=== PATIENT | female | born 1955 | race Hispanic/Latino ===

== ENCOUNTER 2016-11-30 11:38 | Outpatient (CLI) | payer MEDICAID ==
--- NOTE | 2016-11-30 16:29 | Mammography Report ---
BILATERAL DIGITAL SCREENING MAMMOGRAM with CAD: 11/30/16 11:38:00 CLINICAL: Routine screening. COMPARISON:12/01/15 FINDINGS: The breasts are heterogeneously dense, which may obscure small masses. No mass, architectural distortion or suspicious calcifications. IMPRESSION: No mammographic evidence of malignancy. BI-RADS CATEGORY: 1 - - Negative RECOMMENDATION: Routine mammographic screening in one year. COMMENT: Patient follow-up letters are generated by our [employer] application.
== END 2016-11-30 11:39 | disposition home or self-care (01) ==
LOC: SPVWC 11:38
PROVIDERS: ATTEND Internal Medicine
DX: Z12.31 Encounter for screening mammogram for malignant neoplasm of breast (principal)
CPT/HCPCS: 77067; G0202

== ENCOUNTER 2017-12-03 12:33 | Outpatient (CLI) | payer MEDICAID ==
--- NOTE | 2017-12-03 14:09 | Mammography Report ---
BILATERAL MAMMOGRAM: FINDINGS: The breast tissue is heterogeneously dense, which could obscure detection of small masses (approximately 50%-75% glandular). No mass, distortion, suspicious calcification, or skin change is seen. No significant change compared to exams dating back to December 2015. CAD was utilized. IMPRESSION: Negative mammogram. There is no mammographic evidence of malignancy. RECOMMENDATION: Follow-up per ACS guidelines. BI-RADS CATEGORY: 1 = Negative ACR BI-RADS MAMMOGRAPHIC CODES: 0 = Needs additional imaging evaluation; 1 = Negative; 2 = Benign; 3 = Probably benign; 4 = Suspicious; 5 = Malignant; 6 = Known biopsy-proven malignancy COMMENT: 1. Dense breast tissue, i.e., adenosis, fibrocystic changes, etc., may obscure an underlying neoplasm. 2. Approximately 10% of cancers are not detected with mammography. 3. A negative mammography report should not delay biopsy if a clinically suspicious mass is present. COMMENT: Patient follow-up letters are generated in [employer].
== END 2017-12-03 12:34 | disposition home or self-care (01) ==
LOC: SPVWC 12:33
PROVIDERS: ATTEND Internal Medicine
DX: Z12.31 Encounter for screening mammogram for malignant neoplasm of breast (principal)
CPT/HCPCS: 77067

== ENCOUNTER 2019-01-23 07:35 | Outpatient (CLI) | payer MEDICAID ==
--- NOTE | 2019-01-26 12:23 | Mammography Report ---
DIGITAL SCREENING MAMMOGRAM WITH CAD, 01/23/2019 INDICATION: Routine screening mammography. TECHNIQUE: Digital bilateral 2D mammography was obtained in the craniocaudal and mediolateral obliq ue projections. This examination was interpreted with the benefit of Computer-Aided Detection analysi s. COMPARISON: 12/03/2017 FINDINGS: Breast Density: The breasts are heterogeneously dense, which may obscure small masses. There is no evidence of dominant mass, suspicious calcifications or architectural distortion in eithe r breast. IMPRESSION: No mammographic evidence of malignancy. Follow up recommendation: Routine yearly BI-RADS Category 1: Negative. A "normal" or negative report should not discourage follow up or biopsy of a clinically significant f inding. A written summary of these findings will be mailed to the patient. The patient will be entered into a mammography reporting system which will generate a reminder letter for the patient's next appointmen t at the appropriate interval. The [employer] recommends yearly mammograms starting at age 40 and continuing as l perez as a woman is in good health. Breast MRI is recommended for women with an approximate 20-25% or greater lifetime risk of breast cancer, including women with a strong family history of breast or ova yamilet cancer or who have been treated for Hodgkin's disease. Signer Name: Herminio Howard MD Signed: 01/26/2019 12:19 PM Workstation Name: [id number]
--- NOTE | 2019-01-26 14:54 | Mammography Report ---
BONE DEXA CLINICAL: Postmenopausal. COMPARISON: 08/01/2015 and 07/10/2013 TECHNIQUE: 2 site bone DEXA performed on an Hologic scanner. FINDINGS: The average BMD of the lumbar spine L1-L4 is 1.092g/cm squared with a T score of +0.1 and a Z score o f +1.9. This compares to 1.096g/cm squared on the last exam and represents a -0.3 % change from the l ast study [and a -5.0% change from baseline]. The average BMD of the left hip is 0.757 g/cm squared with a T score of -1.5and a Z score of -0.3. Th is compares to 0.792 g/cm squared on the last exam and represents a -4.4 % change from the last study and a +4.6% change from baseline. IMPRESSION: 1. WHO classification: Normal with average fracture risk based on spine measurements. 2. WHO classification Osteopenia with increased fracture risk based on left hip measurements. 3. Modest decline in spine BMD compared to the last exam but a greater decline in left hip BMD compar ed to the last exam. RECOMMENDATION: Clinical correlation and routine screening. Definitions: BMD equal bone mineral density T score = BMD related to peak bone mass of young adult ([place] expressed an standard deviation) Z score = age-matched BMD expressed in SD World health organization (WHO) diagnostic criteria Normal T score greater than equal to 1 standard deviation Osteopenia T score between -1 and -2.4 standard deviation Osteoporosis T score -2.5 standard deviation or below. Note: BMD is not the only risk factor for fracture; also consider factors such as the patient's age, risk of falling, previous osteoporotic fracture, family history of osteoporotic fractures, current sm oker and low body weight. Z scores are not calculated if greater than 80 years of age. Signer Name: Herminio Howard MD Signed: 01/26/2019 2:50 PM Workstation Name: [id number]
== END 2019-01-23 07:36 | disposition home or self-care (01) ==
LOC: SPVWC 07:35
PROVIDERS: ATTEND Internal Medicine
DX: Z12.31 Encounter for screening mammogram for malignant neoplasm of breast (principal); Z78.0 Asymptomatic menopausal state
CPT/HCPCS: 77067; 77080

== ENCOUNTER 2020-01-26 08:00 | Outpatient (CLI) | payer MEDICARE ==
--- NOTE | 2020-02-02 10:16 | Mammography Report ---
DIGITAL SCREENING MAMMOGRAM WITH CAD, 01/28/2020 INDICATION: Routine screening mammography. TECHNIQUE: Digital bilateral 2D mammography was obtained in the craniocaudal and mediolateral obliq ue projections. This examination was interpreted with the benefit of Computer-Aided Detection analysi s. COMPARISON: 01/23/2019, 12/03/2017 FINDINGS: Breast Density: There are scattered areas of fibroglandular density. There is no evidence of dominant mass, suspicious calcifications or architectural distortion in eithe r breast. There have been no significant interval changes. IMPRESSION: No mammographic evidence of malignancy or significant interval changes. Follow up recommendation: Routine yearly BI-RADS Category 1: Negative. A "normal" or negative report should not discourage follow up or biopsy of a clinically significant f inding. A written summary of these findings will be mailed to the patient. The patient will be entered into a mammography reporting system which will generate a reminder letter for the patient's next appointmen t at the appropriate interval. The [employer] recommends yearly mammograms starting at age 40 and continuing as l perez as a woman is in good health. Breast MRI is recommended for women with an approximate 20-25% or greater lifetime risk of breast cancer, including women with a strong family history of breast or ova yamilet cancer or who have been treated for Hodgkin's disease. Signer Name: Mauricio Edward MD Signed: 02/02/2020 10:12 AM Workstation Name: [id number]
== END 2020-01-26 08:01 | disposition home or self-care (01) ==
LOC: SPVWC 08:00
PROVIDERS: ATTEND Internal Medicine
DX: Z12.31 Encounter for screening mammogram for malignant neoplasm of breast (principal)
CPT/HCPCS: 77067

== ENCOUNTER 2021-12-13 08:05 | Outpatient (CLI) | payer MEDICARE ==
--- NOTE | 2021-12-13 10:24 | Mammography Report ---
DIGITAL SCREENING MAMMOGRAM WITH CAD, 12/13/2021 CLINICAL INFORMATION / INDICATION: Routine screening mammography. TECHNIQUE: Digital bilateral 2D mammography was obtained in the craniocaudal and mediolateral oblique projections. This examination was interpreted with the benefit of Computer-Aided Detection analysis. COMPARISON: 11/30/2016 through 01/27/2020. FINDINGS: Breast Density: There are scattered areas of fibroglandular density. No dominant mass, suspicious calcifications, or architectural distortion in the left breast. There is a new 11 mm spiculated mass in the right upper outer quadrant in the posterior depth at appr oximately the 10:00 to 11:00 position 9 to 10 cm from the nipple. IMPRESSION: Spiculated mass in the right upper outer quadrant. Ultrasound is recommended for initial evaluation. Spot compression views could be performed if necessary. Follow up recommendation: Ultrasound BI-RADS Category 0: INCOMPLETE. Needs additional imaging evaluation and/or prior mammograms for cara rison. A "normal" or negative report should not discourage follow up or biopsy of a clinically significant f inding. A written summary of these findings will be mailed to the patient. The patient will be entered into a mammography reporting system which will generate a reminder letter for the patient's next appointmen t at the appropriate interval. The [employer] recommends yearly mammograms starting at age 40 and continuing as l perez as a woman is in good health. Breast MRI is recommended for women with an approximate 20-25% or greater lifetime risk of breast cancer, including women with a strong family history of breast or ova yamilet cancer or who have been treated for Hodgkin's disease. Signer Name: Jaime Michaud MD Signed: 12/13/2021 10:20 AM Workstation Name: [id number]
== END 2021-12-13 08:06 | disposition home or self-care (01) ==
LOC: SPVWC 08:05
PROVIDERS: ATTEND Internal Medicine
DX: Z12.31 Encounter for screening mammogram for malignant neoplasm of breast (principal); N63.11 Unspecified lump in the right breast, upper outer quadrant
CPT/HCPCS: 77067

== ENCOUNTER 2021-12-21 08:38 | Outpatient (CLI) | payer MEDICARE ==
--- NOTE | 2021-12-21 14:33 | Ultrasound Report ---
RIGHT DIGITAL DIAGNOSTIC MAMMOGRAM CONVENTIONAL, 12/21/2021 RIGHT LIMITED BREAST ULTRASOUND CLINICAL INFORMATION / INDICATION: Patient presents as a callback from screening mammogram for furthe r evaluation of a new spiculated mass in the right breast. ABNORMAL MAMMOGRAM TECHNIQUE: Digital right mammographic imaging was performed. Spot compression views were obtained. Li mited ultrasound was performed. COMPARISON: Prior mammogram 12/13/2021 FINDINGS: Breast Density: There are scattered areas of fibroglandular density. MAMMOGRAPHIC FINDINGS: Spot compression views reveal a persistent irregular spiculated mass in the po sterior upper outer quadrant of the right breast, measuring up to 1.2 cm. Targeted ultrasound was per formed for further evaluation. ULTRASOUND FINDINGS: Targeted ultrasound evaluation was performed of the area of interest. Targeted ultrasound was performed of the upper outer quadrant of the right breast. There is a focus of probab le fibrocystic change in the 11:00 position located 7 cm from nipple measuring up to 4 mm. Additional ly, there is a morphologically normal lymph node in the 11:00 position located 11 cm from the nipple. These do not appear to correspond with the mammographic finding. No definite sonographic correlate i s identified for the spiculated mass seen mammographically. IMPRESSION: 1. There is a persistent irregular spiculated mass seen in the posterior upper-outer quadrant of the right breast. This is highly suggestive of malignancy. As there is no definite sonographic correlate identified, stereotactic biopsy is recommended. Follow up recommendation: Biopsy BI-RADS Category 5: HIGHLY SUGGESTIVE OF MALIGNANCY. A "normal" or negative report should not discourage follow up or biopsy of a clinically significant f inding. A written summary of these findings will be mailed to the patient. The patient will be entered into a mammography reporting system which will generate a reminder letter for the patient's next appointmen t at the appropriate interval. According to the [employer], yearly mammograms are recommended starting at age 40 and continuing as long as a woman is in good health. Breast MRI is recommended for women with an danni roximately 20-25% or greater lifetime risk of breast cancer, including women with a strong family his tory of breast or ovarian cancer and women who have been treated for Hodgkin's disease. Signer Name: Denisse Hernández MD Signed: 12/21/2021 2:28 PM Workstation Name: [email or web address]
== END 2021-12-21 08:39 | disposition home or self-care (01) ==
LOC: US 08:38
PROVIDERS: ATTEND Internal Medicine
DX: R92.8 Other abnormal and inconclusive findings on diagnostic imaging of breast (principal)